=== PATIENT | female | born 1970 | race Caucasian/White ===

== ENCOUNTER → 2016-09-29 | Outpatient (CLI) | payer OTHER ==
[~2016-09-29] MED LIST: BENZONATATE PO; CIPRO PO; DICYCLOMINE HCL20 MG PO; FIORINAL CAPSUL1 CAP PO; FLONASE 0.05% N16 G1; LORTAB 10-5001 EACH PO; LORTAB 5/500 TA1 TA2 PO; MEDROL4 MG/DOSE- PO; ORUDIS75 M1 PO; PERCOCET PO; PERCOCET5/325 PO; PHENERGAN25 MG PO; PREDNISONE PO; PROZAC10 MG PO; PYRIDIUM PO; TAMIFLU75 M1 PO; TESSALON200 MG PO; TYLENOL #3 PO; ZITHROMAX PO; ZITHROMAX1 G/PKT PO
--- NOTE | ~2016-09-29 | CR151 ---
[facility] A Service of [facility] RADIOLOGY TEXT RESULTS PATIENT: BREANA PATEL LOCATION: [facility] : 74 UNIT #: [id number] AGE: [address]: Comfort Castelan APRN SEX: F ORDER DR: [id number] [facility] [address] [place], [place] [address] [id number] O MR#: [id number] Acc #: [id number] NAME: BREANA PATEL : 1970 SEX: F STUDY DATE/TIME: 09/29/2016 10:00 UNIT: [facility] ROOM: STUDY DESCRIPTION: CR Hip Min 2 Views Rt Attending Physician: Comfort Castelan Aprn Referring Physician: Comfort Castelan Aprn Ordering Physician: Comfort Castelan Aprn Primary Care Physician: Mrak Goldstein M.D. MEDICAL IMAGING REPORT This report is preliminary unless electronic signature is present EXAM Right hip 2 views 09/29/2016 HISTORY Right hip pain for 1 year. No known injury. FINDINGS AP and oblique examination of the hip shows adequate mineralization of the bones and a normal anatomic relationship of the femoral head with the acetabulum. There are no hypertrophic changes, fractures, dislocation, or joint capsular distension. No radiopaque foreign body is present about the soft tissues of the hip. IMPRESSION Normal hip. Dictated by... Rod Chaney M.D. THIS IS AN ELECTRONICALLY VERIFIED REPORT Rod Chaney M.D. at 09/29/2016 5:41 PM KRT/pcl TD: 09/29/2016 16:52 JOB #: [id number] MEDICAL IMAGING REPORT Page 1 of 1 COPY
== END | disposition home or self-care (01) ==
LOC: CRAD 09:43
DX: M25.551 Pain in right hip (principal); M54.5 Low back pain
CPT/HCPCS: 73502